=== PATIENT | female | born 1950 | race Caucasian/White ===

== ENCOUNTER 2016-07-13 10:26 | Day surgery (SDC) | payer BC ==
[~2016-07-13] VITALS: Ht 167.6 cm; Wt 74.9 kg
[~2016-07-13 10:26] MED LIST: NAPR-638; [UNRECOGNIZED DRUG - CODE]
[2016-07-13 11:01] VITALS: Ht 167.6 cm; Wt 74.9 kg
[2016-07-13 11:20] VITALS: BP 126/63; PULSE 89; RESP 18
[2016-07-13] MEDS ORDERED: PROPOFOL 20 ML ONE ×2 (11:29→11:51)
[2016-07-13 12:25] VITALS: BP 134/84; PULSE 74; RESP 14
--- NOTE | 2016-07-13 14:23 | GILP ---
DATE OF PROCEDURE: NAME OF PROCEDURE: Colonoscopy. SURGEON: Sergio Harris MD PREOPERATIVE DIAGNOSIS: Screening colonoscopy. POSTOPERATIVE DIAGNOSES 1. Colonoscopy all the way to the cecum. 2. Diverticulosis of the colon. 3. Internal hemorrhoids. 4. No colon neoplasm was identified. INDICATION FOR THE PROCEDURE: Ms. Raquel Birmingham is a 65-year-old female patient who was scheduled fo r screening colonoscopy. The procedure and possible complications are well explained to the patient, she understood and conse nted to the procedure. DESCRIPTION OF PROCEDURE: Under the influence of anesthesia, the colonoscope was carefully introduc ed in the rectum and under direct vision, it was advanced all the way to the cecum. FINDINGS: The patient had diverticulosis of the colon. She also had internal hemorrhoids. No colo n neoplasm was identified. She tolerated the procedure very well and there was no complication from the procedure. At the end of the procedures, she was awake with stable vital signs and she was discharged home to the care of her family. IMPRESSION: 1. Colonoscopy all the way to the cecum. 2. Diverticulosis of the colon. 3. Internal hemorrhoids. 4. No colon neoplasm was identified. PLAN: Next screening colonoscopy in 10 years. Dictated By: SERGIO MARTINEZ/BILLY Conf#: [id number] DID#: [id number]
== END 2016-07-13 12:49 | disposition home or self-care (01) ==
LOC: GIL 10:26
PROVIDERS: ATTEND Internal Medicine Gastroenterology
DX: Z12.11 Encounter for screening for malignant neoplasm of colon (principal); K57.90 Diverticulosis of intestine, part unspecified, without perforation or abscess without bleeding; K64.8 Other hemorrhoids